=== PATIENT | male | born 1945 | race Caucasian/White ===

== ENCOUNTER 2020-01-19 12:14 | Inpatient (IN) ==
[~2020-01-19 12:14] MED LIST: CEFUROXIME INJ 1,500 MG in SODIUM CHLORIDE 0.9% 100 ML IV ONE; DEXTROSE 50% 25 GM/50 ML VIAL IV PRN; GLUCAGON 1 MG VIAL IM PRN
[2020-01-19] MEDS ORDERED: SODIUM CHLORIDE 0.9% 1,000 ML IV SCH (12:30)
[2020-01-19 13:39] LABS: Basophils % 0.5 % (0.0-0.8); Eosinophils # 0.1 10*3/uL (0.0-0.87); Eosinophils % 1.8 % (0.00-10.9); Hematocrit 48.7 VOL% (42.0-52.0); Hemoglobin 16.2 GM/DL (14.0-18.0); Immature Granulocytes % 0.2 %; Immature Granulocytes Absolute 0.01 #; Lymphocytes # 2.8 10*3/uL (1.4-4.0); Lymphocytes % 41.4 % (21.2-54.2); Mean Corpuscular HGB Conc 33.3 GM/DL (32-36); Mean Corpuscular Volume 92.8 FL (87-102); Mean Platelet Volume 10.1 FL (9.6-12.0); Monocytes % 11.3 % (1.7-12.7); Neutrophils % 44.8 % (38.7-73.9); Platelet Count 237 T/CUMM (130-400); Red Blood Count 5.25 MC/CUMM (3.8-5.5); Red Cell Distribution Width 13.4 % (9.3-17.3); White Blood Count 6.6 T/CUMM (4-12)
[2020-01-19 14:00] LABS: Alanine Aminotransferase 22 U/L (16-61); Albumin 4.3 G/DL (3.4-5.0); Alkaline Phosphatase 78 U/L (45-117); Aspartate Amino Transferase 21 U/L (0-37); Bilirubin,Total < 0.39 MG/DL (0.2-1.0); Blood Urea Nitrogen 16 MG/DL (7-18); Calcium 8.9 MG/DL (8.5-10.1); Glucose 125 MG/DL (74-106); Osmolality,Calculated 276.7 MOS/KG (273-304); Total Protein 7.9 G/DL (6.4-8.3)
[2020-01-19 14:01] LABS: Estimated Glom Filtration Rate 0 ML/MIN
[2020-01-19] MEDS: CHLORHEXIDINE 4% SOLN 118 ML BOTTLE TOP SCH ×2 (15:15→20:30)
[2020-01-19] MEDS: INSULIN REGULAR 100 UNIT/ML SUBCUT SCH ×2 (16:48→20:29)
[2020-01-19] MEDS: CHLORHEXIDINE 0.12% ORAL RINSE 60 ML BOTTLE SWISH/SPIT SCH (20:32)
[2020-01-20] MEDS ORDERED: PAPAVERINE 60 MG/2 ML VIAL ONE ×2 (04:21→09:14)
[2020-01-20] MEDS ORDERED: VANCOMYCIN 500 MG VIAL ONE (04:22)
[2020-01-20] MEDS ORDERED: VANCOMYCIN 1,000 MG VIAL ONE (04:22)
[2020-01-20] MEDS ORDERED: CEFUROXIME INJ 1,500 MG in SYRINGE 1 EACH IV ONE (05:00)
[2020-01-20] MEDS ORDERED: ETOMIDATE 40 MG/20 ML VIAL IV ONE (06:00)
[2020-01-20] MEDS ORDERED: VECURONIUM 10 MG VIAL IV ONE ×3 (06:00)
[2020-01-20] MEDS ORDERED: LIDOCAINE 2% 5 ML VIAL ONE ×2 (06:01→11:11)
[2020-01-20] MEDS ORDERED: MIDAZOLAM 10 MG/2 ML VIAL ONE ×3 (06:02)
[2020-01-20] MEDS ORDERED: SUFentanil 250 MCG/5 ML AMP ONE (06:02)
[2020-01-20] MEDS ORDERED: FAMOTIDINE 20 MG TABLET PO ONE (06:30)
[2020-01-20] MEDS ORDERED: DIAZEPAM 5 MG TABLET PO ONE (06:30)
[2020-01-20] MEDS ORDERED: PHENYLEPHRINE DRIP 40 MG/250 ML PREMIX IV ONE (07:40)
[2020-01-20 07:48] LABS: ABG Base Excess -0.9 MMOL/L (-2.5-2.5); ABG HCO3 23.2 MMOL/L (20-26); ABG Oxygen Saturation 99.2 % (95-100); ABG PH 7.415 (7.35-7.45); ABG PO2 427.9 MM HG (80-95); ABG TCO2 24.3 MMOL/L (23-27); Glucose Heart Surgery 139 MG/DL (74-106); Hemoglobin Heart Surgery 14.4 G/DL (14.0-18.0); PH Patient Temp Arterial 7.415; PO2 Patient Temp Arterial 427.9 MM HG; Patient Temperature 37 CELCIUS; Potassium Heart/CVR 4.2 MMOL/L (3.5-5.1); Sodium Heart/CVR 135 MMOL/L (135-145)
[2020-01-20 08:04] LABS: Bilirubin,Urine Negative (Negative); Blood, Urine Negative (Negative); Glucose,Urine (UA) >=500 mg/dL (Negative); Hyaline Casts,Urine 1 /LPF (0-3); Ketones,Urine 5 mg/dL (Negative); Mucus,Urine Occasional /LPF (Occasional); Nitrite,Urine Negative (Negative); Protein,Urine Negative; RBC,Urine 1 /HPF (0-4); Urine Appearance CLEAR (Clear); Urine Color Yellow (Yellow); Urine Specific Gravity 1.023 (1.001-1.035); Urine Urobilinogen < 2.0 EU/DL (0.2-1.0)
[2020-01-20] MEDS ORDERED: HEPARIN 10,000 UNIT/10 ML VIAL ONE ×2 (08:44→11:12)
[2020-01-20] MEDS ORDERED: CALCIUM CHLORIDE 1,000 MG/10 ML VIAL IV ONE ×2 (09:40→10:58)
[2020-01-20] MEDS ORDERED: AMIODARONE 150 MG/3 ML VIAL ONE (09:41)
[2020-01-20 09:44] LABS: Hematocrit Heart Surgery 30.2 PERCENT (42-52); Hemoglobin Heart Surgery 9.8 G/DL (14.0-18.0); PCO2 Patient Temp Venous 37.3 MM HG; PH Patient Temp Venous 7.423; PO2 Patient Temp Venous 34.7 MM HG; Potassium Heart/CVR 4.4 MMOL/L (3.5-5.1); VBG Base Excess 0.3 MEQ/L (0-4); VBG HCO3 24.4 MEQ/L (24-28); VBG Oxygen Saturation 77.3 %; VBG PCO2 43.2 MMHG (41-51); VBG PH 7.38; VBG PO2 42.8 MMHG (17-40)
[2020-01-20 10:17] LABS: Hematocrit Heart Surgery 30.1 PERCENT (42-52); Hemoglobin Heart Surgery 9.7 G/DL (14.0-18.0); PCO2 Patient Temp Venous 33.3 MM HG; PH Patient Temp Venous 7.462; PO2 Patient Temp Venous 31.2 MM HG; Potassium Heart/CVR 4.8 MMOL/L (3.5-5.1); VBG Base Excess 0.4 MEQ/L (0-4); VBG HCO3 24.4 MEQ/L (24-28); VBG Oxygen Saturation 70.6 %; VBG PCO2 36.7 MMHG (41-51); VBG PH 7.432; VBG PO2 35.9 MMHG (17-40)
[2020-01-20] MEDS ORDERED: THROMBIN TOPICAL (RECOMBINANT) 5,000 UNIT VIAL TOP ONE (10:39)
[2020-01-20 11:06] LABS: ABG Base Excess -1.9 MMOL/L (-2.5-2.5); ABG HCO3 22.8 MMOL/L (20-26); ABG Oxygen Saturation 98.1 % (95-100); ABG PCO2 43.1 MM HG (35-48); ABG PH 7.347 (7.35-7.45); ABG TCO2 21.9 MMOL/L (23-27); Glucose Heart Surgery 221 MG/DL (74-106); Hematocrit Heart Surgery 27.7 PERCENT (42-52); Hemoglobin Heart Surgery 8.9 G/DL (14.0-18.0); PCO2 Patient Temp Arterial 43.1 MMHG; PH Patient Temp Arterial 7.347; Patient Temperature 37 CELCIUS; Potassium Heart/CVR 3.7 MMOL/L (3.5-5.1); Sodium Heart/CVR 138 MMOL/L (135-145)
[2020-01-20] MEDS ORDERED: ALBUMIN 25% 25 GM/100 ML VIAL IV ONE (11:11)
[2020-01-20] MEDS ORDERED: methylPREDNISolone SOD SUC 1,000 MG/8 ML VIAL ONE (11:11)
[2020-01-20] MEDS ORDERED: MAGNESIUM SULFATE 5 GM/10 ML VIAL IV ONE (11:11)
[2020-01-20] MEDS ORDERED: PROTAMINE SULFATE 250 MG/25 ML VIAL IV ONE (11:12)
[2020-01-20] MEDS ORDERED: DEXTROSE 5% KCL 20 MEQ 20 MEQ/1,000 ML BAG IV ONE (11:12)
[2020-01-20] MEDS ORDERED: MANNITOL 100 GM/500 ML BAG IV ONE (11:12)
[2020-01-20] MEDS ORDERED: FUROSEMIDE 20 MG/2 ML VIAL ONE (11:13)
[2020-01-20] MEDS ORDERED: SODIUM BICARBONATE 50 MEQ/50 ML VIAL IV ONE (11:13)
[2020-01-20] MEDS ORDERED: PROTAMINE SULFATE 50 MG/5 ML VIAL IV ONE ×3 (11:13→12:06)
[2020-01-20] MEDS ORDERED: SODIUM CHLORIDE 0.9% 250 ML IV ONE (11:16)
[2020-01-20] MEDS ORDERED: LACTATED RINGERS 2,000 ML IV ONE (11:16)
[2020-01-20] MEDS ORDERED: SODIUM CHLORIDE 0.9% 2,000 ML IV ONE (11:16)
[2020-01-20] MEDS: LACTATED RINGERS 1,000 ML IV PRN ×3 (12:00→15:58)
[2020-01-20] MEDS ORDERED: PHENYLEPHRINE DRIP 40 MG/250 ML PREMIX IV PRN (12:03)
[2020-01-20] MEDS ORDERED: MAGNESIUM SULF RIDER 2 GM in PREMIX 1 EACH IV PRN (12:03)
[2020-01-20] MEDS ORDERED: INSULIN REGULAR 100 UNIT/ML IV ONE (12:03)
[2020-01-20] MEDS ORDERED: CALCIUM CHLORIDE 1,000 MG/10 ML SYRINGE IV PRN (12:03)
[2020-01-20] MEDS ORDERED: MAGNESIUM SULF RIDER 4 GM in PREMIX 1 EACH IV PRN (12:03)
[2020-01-20] MEDS ORDERED: CHLORHEXIDINE 4% SOLN 118 ML BOTTLE TOP PRN (12:03)
[2020-01-20] MEDS ORDERED: ACETAMINOPHEN 650 MG SUPP RECTAL PRN (12:03)
[2020-01-20] MEDS ORDERED: MORPHINE 10 MG/1 ML VIAL IV PRN (12:03)
[2020-01-20] MEDS ORDERED: ALBUMIN 5% 12.5 GM in PREMIX 1 EACH IV PRN (12:03)
[2020-01-20] MEDS ORDERED: NITROPRUSSIDE 100 MG in DEXTROSE 5% 250 ML IV PRN (12:03)
[2020-01-20] MEDS ORDERED: VECURONIUM 10 MG VIAL IV PRN ×2 (12:03)
[2020-01-20] MEDS ORDERED: LACTATED RINGERS 250 ML IV PRN (12:03)
[2020-01-20] MEDS ORDERED: POTASSIUM CHLORIDE RIDER 10 MEQ in PREMIX 1 EACH IV PRN (12:03)
[2020-01-20] MEDS ORDERED: MIDAZOLAM 2 MG/2 ML VIAL IV PRN (12:03)
[2020-01-20] MEDS ORDERED: DEXTROSE 50% 25 GM/50 ML VIAL IV PRN ×2 (12:03)
[2020-01-20] MEDS ORDERED: INSULIN REGULAR DRIP 100 ML IV SCH (12:03)
[2020-01-20] MEDS ORDERED: ONDANSETRON 4 MG/2 ML VIAL IV PRN (12:03)
[2020-01-20] MEDS ORDERED: INSULIN REGULAR 100 UNIT/ML IV PRN (12:03)
[2020-01-20] MEDS ORDERED: SODIUM CHLORIDE 0.45% 1,000 ML IV SCH ×2 (12:03)
[2020-01-20] MEDS ORDERED: MIDAZOLAM 10 MG/2 ML VIAL IV PRN (12:03)
[2020-01-20] MEDS: CHLORHEXIDINE 4% SOLN 118 ML BOTTLE TOP SCH (12:08)
[2020-01-20] MEDS ORDERED: SEVOFLURANE 1 UNIT/15 MINUTE INH ONE (12:08)
[2020-01-20] MEDS ORDERED: SODIUM CHLORIDE 0.9% 1,000 ML IV PRN (12:20)
[2020-01-20] MEDS ORDERED: AMIODARONE INJ 450 MG in DEXTROSE 5% 241 ML IV SCH ×2 (12:30→18:30)
[2020-01-20 12:31] LABS: ABG HCO3 21.9 MMOL/L (20-26); ABG Oxygen Saturation 98.5 % (95-100); ABG TCO2 21.9 MMOL/L (23-27); Glucose Heart Surgery 203 MG/DL (74-106); Hemoglobin Heart Surgery 9.4 G/DL (14.0-18.0); Potassium Heart/CVR 3.8 MMOL/L (3.5-5.1)
[2020-01-20 12:34] LABS: Basophils % 0.3 % (0.0-0.8); Eosinophils # 0.1 10*3/uL (0.0-0.87); Eosinophils % 0.6 % (0.00-10.9); Hematocrit 27.2 VOL% (42.0-52.0); Immature Granulocytes % 0.4 %; Immature Granulocytes Absolute 0.04 #; Lymphocytes # 1.6 10*3/uL (1.4-4.0); Lymphocytes % 16.8 % (21.2-54.2); Mean Corpuscular HGB Conc 33.1 GM/DL (32-36); Mean Corpuscular Volume 94.8 FL (87-102); Mean Platelet Volume 10.1 FL (9.6-12.0); Monocytes % 7.1 % (1.7-12.7); Neutrophils % 74.8 % (38.7-73.9); Platelet Count 139 T/CUMM (130-400); Red Blood Count 2.87 MC/CUMM (3.8-5.5); Red Cell Distribution Width 13.4 % (9.3-17.3); White Blood Count 9.7 T/CUMM (4-12)
[2020-01-20 12:45] LABS: INR 1.3; PT Patient Result 14.2 SECS (9.8-11.9)
[2020-01-20 12:55] LABS: CKMB % 6.4 %
[2020-01-20 12:59] LABS: Albumin 2.8 G/DL (3.4-5.0); Bilirubin,Total 0.9 MG/DL (0.2-1.0); Calcium 7.9 MG/DL (8.5-10.1); Osmolality,Calculated 283.4 MOS/KG (273-304); Total Protein 4.6 G/DL (6.4-8.3); Troponin I 3.03 NG/ML (0.00-0.045)
[2020-01-20] MEDS: POTASSIUM CHLORIDE RIDER 20 MEQ in PREMIX 1 EACH IV PRN ×2 (13:05→16:02)
[2020-01-20] MEDS ORDERED: NITROPRUSSIDE 50 MG/2 ML VIAL ONE (13:05)
[2020-01-20 14:17] LABS: ABG HCO3 21.1 MMOL/L (20-26); ABG Oxygen Saturation 97.6 % (95-100); ABG PCO2 50.8 MM HG (35-48); ABG PH 7.269 (7.35-7.45); ABG TCO2 21.5 MMOL/L (23-27); Glucose Heart Surgery 282 MG/DL (74-106); Hematocrit Heart Surgery 30.9 PERCENT (42-52); Potassium Heart/CVR 4.3 MMOL/L (3.5-5.1)
[2020-01-20 15:44] LABS: ABG Base Excess -1.9 MMOL/L (-2.5-2.5); ABG HCO3 22.8 MMOL/L (20-26); ABG Oxygen Saturation 97.7 % (95-100); ABG PCO2 45.7 MM HG (35-48); ABG PO2 97.3 MM HG (80-95); ABG TCO2 22.3 MMOL/L (23-27); Glucose Heart Surgery 257 MG/DL (74-106); Hematocrit Heart Surgery 28.5 PERCENT (42-52); Hemoglobin Heart Surgery 9.2 G/DL (14.0-18.0); Potassium Heart/CVR 3.9 MMOL/L (3.5-5.1)
[2020-01-20 16:59] LABS: ABG Base Excess -1.2 MMOL/L (-2.5-2.5); ABG HCO3 23.4 MMOL/L (20-26); ABG Oxygen Saturation 98.5 % (95-100); ABG PCO2 40.6 MM HG (35-48); ABG PH 7.377 (7.35-7.45); ABG TCO2 21.9 MMOL/L (23-27); Glucose Heart Surgery 240 MG/DL (74-106); Hematocrit Heart Surgery 29.2 PERCENT (42-52); Hemoglobin Heart Surgery 9.4 G/DL (14.0-18.0); Potassium Heart/CVR 4.2 MMOL/L (3.5-5.1)
[2020-01-20] MEDS: INSULIN REGULAR 100 UNIT/ML SUBCUT SCH ×2 (17:41→17:42)
[2020-01-20] MEDS: CHLORHEXIDINE 0.12% ORAL RINSE 60 ML BOTTLE SWISH/SPIT SCH ×2 (17:41→21:57)
[2020-01-20] MEDS: MORPHINE 4 MG/1 ML VIAL IV PRN ×2 (17:52→19:48)
[2020-01-20] MEDS: CEFUROXIME INJ 1,500 MG in SODIUM CHLORIDE 0.9% 100 ML IV SCH (17:54)
[2020-01-20 18:31] LABS: ABG Base Excess -0.8 MMOL/L (-2.5-2.5); ABG HCO3 23.7 MMOL/L (20-26); ABG Oxygen Saturation 97.6 % (95-100); ABG PCO2 38.5 MM HG (35-48); ABG PH 7.398 (7.35-7.45); ABG PO2 88.8 MM HG (80-95); ABG TCO2 21.5 MMOL/L (23-27); Glucose Heart Surgery 216 MG/DL (74-106); Hematocrit Heart Surgery 32.3 PERCENT (42-52); Hemoglobin Heart Surgery 10.4 G/DL (14.0-18.0); Potassium Heart/CVR 4.3 MMOL/L (3.5-5.1)
[2020-01-20] MEDS ORDERED: HALOPERIDOL 5 MG/ML AMP IV ONE (18:31)
[2020-01-20] MEDS: KETOROLAC 30 MG/1 ML VIAL IV SCH (20:06)
[2020-01-20 20:55] LABS: ABG Base Excess -0.5 MMOL/L (-2.5-2.5); ABG Oxygen Saturation 96.8 % (95-100); ABG PCO2 43.6 MM HG (35-48); ABG PH 7.366 (7.35-7.45); ABG PO2 85.2 MM HG (80-95); ABG TCO2 22.6 MMOL/L (23-27); Glucose Heart Surgery 189 MG/DL (74-106); Hematocrit Heart Surgery 32.5 PERCENT (42-52); Hemoglobin Heart Surgery 10.5 G/DL (14.0-18.0); Potassium Heart/CVR 4.3 MMOL/L (3.5-5.1)
[2020-01-20 21:24] LABS: CKMB % 4.4 %
[2020-01-20 21:26] LABS: Troponin I 2.53 NG/ML (0.00-0.045)
[2020-01-20 21:50] LABS: ABG Base Excess 0.3 MMOL/L (-2.5-2.5); ABG HCO3 24.7 MMOL/L (20-26); ABG Oxygen Saturation 95.6 % (95-100); ABG PCO2 43.8 MM HG (35-48); ABG PH 7.376 (7.35-7.45); ABG PO2 80.4 MM HG (80-95); ABG TCO2 23.3 MMOL/L (23-27); Glucose Heart Surgery 178 MG/DL (74-106); Hematocrit Heart Surgery 32.3 PERCENT (42-52); Hemoglobin Heart Surgery 10.5 G/DL (14.0-18.0); Potassium Heart/CVR 4.3 MMOL/L (3.5-5.1)
[2020-01-20 22:24] LABS: ABG Base Excess 0.4 MMOL/L (-2.5-2.5); ABG HCO3 24.8 MMOL/L (20-26); ABG Oxygen Saturation 96.2 % (95-100); ABG PH 7.383 (7.35-7.45); ABG TCO2 23.3 MMOL/L (23-27); Glucose Heart Surgery 173 MG/DL (74-106); Hematocrit Heart Surgery 31.9 PERCENT (42-52); Hemoglobin Heart Surgery 10.3 G/DL (14.0-18.0); Potassium Heart/CVR 4.3 MMOL/L (3.5-5.1)
[2020-01-20 23:42] LABS: ABG Base Excess 0.7 MMOL/L (-2.5-2.5); ABG HCO3 25.1 MMOL/L (20-26); ABG PCO2 44.2 MM HG (35-48); ABG PO2 86.7 MM HG (80-95); ABG TCO2 23.7 MMOL/L (23-27); Glucose Heart Surgery 161 MG/DL (74-106); Hematocrit Heart Surgery 32.1 PERCENT (42-52); Hemoglobin Heart Surgery 10.4 G/DL (14.0-18.0); Potassium Heart/CVR 4.2 MMOL/L (3.5-5.1)
[2020-01-21 00:25] LABS: ABG Base Excess 0.8 MMOL/L (-2.5-2.5); ABG HCO3 25.1 MMOL/L (20-26); ABG PCO2 43.7 MM HG (35-48); ABG PH 7.384 (7.35-7.45); ABG PO2 86.8 MM HG (80-95); ABG TCO2 23.7 MMOL/L (23-27); Glucose Heart Surgery 152 MG/DL (74-106); Hematocrit Heart Surgery 31.9 PERCENT (42-52); Hemoglobin Heart Surgery 10.3 G/DL (14.0-18.0); Potassium Heart/CVR 4.1 MMOL/L (3.5-5.1)
[2020-01-21 01:20] LABS: ABG Base Excess 0.7 MMOL/L (-2.5-2.5); ABG HCO3 25.1 MMOL/L (20-26); ABG Oxygen Saturation 97.9 % (95-100); ABG PCO2 45.8 MM HG (35-48); ABG PH 7.368 (7.35-7.45); ABG PO2 96.9 MM HG (80-95); Glucose Heart Surgery 149 MG/DL (74-106); Hematocrit Heart Surgery 31.9 PERCENT (42-52); Hemoglobin Heart Surgery 10.3 G/DL (14.0-18.0); Potassium Heart/CVR 4.1 MMOL/L (3.5-5.1)
[2020-01-21] MEDS ORDERED: FUROSEMIDE 40 MG/4 ML VIAL IV ONE (01:38)
[2020-01-21] MEDS: KETOROLAC 30 MG/1 ML VIAL IV SCH ×4 (02:20→20:13)
[2020-01-21] MEDS: MORPHINE 4 MG/1 ML VIAL IV PRN (02:43)
[2020-01-21 04:50] LABS: ABG Base Excess 2.2 MMOL/L (-2.5-2.5); ABG HCO3 26.4 MMOL/L (20-26); ABG Oxygen Saturation 98.1 % (95-100); ABG PCO2 47.1 MM HG (35-48); ABG PH 7.379 (7.35-7.45); ABG PO2 98.9 MM HG (80-95); ABG TCO2 25.4 MMOL/L (23-27); Basophils % 0.1 % (0.0-0.8); Glucose Heart Surgery 148 MG/DL (74-106); Hematocrit Heart Surgery 30.8 PERCENT (42-52); Hemoglobin 9.9 GM/DL (14.0-18.0); Immature Granulocytes % 0.4 %; Immature Granulocytes Absolute 0.05 #; Lymphocytes # 1.3 10*3/uL (1.4-4.0); Lymphocytes % 9.6 % (21.2-54.2); Mean Corpuscular HGB Conc 35.4 GM/DL (32-36); Mean Corpuscular Volume 89.5 FL (87-102); Mean Platelet Volume 10.6 FL (9.6-12.0); Neutrophils % 77.9 % (38.7-73.9); Platelet Count 185 T/CUMM (130-400); Potassium Heart/CVR 3.9 MMOL/L (3.5-5.1); Red Blood Count 3.13 MC/CUMM (3.8-5.5); Red Cell Distribution Width 14.4 % (9.3-17.3); White Blood Count 13.8 T/CUMM (4-12)
[2020-01-21 05:12] LABS: Albumin 3.2 G/DL (3.4-5.0); Bilirubin,Direct 0.18 MG/DL (0.0-0.20); Bilirubin,Total 0.7 MG/DL (0.2-1.0); Osmolality,Calculated 281.4 MOS/KG (273-304); Total Protein 5.9 G/DL (6.4-8.3)
[2020-01-21 05:14] LABS: CKMB % 5.3 %
[2020-01-21 05:16] LABS: Troponin I 4.36 NG/ML (0.00-0.045)
[2020-01-21] MEDS: CEFUROXIME INJ 1,500 MG in SODIUM CHLORIDE 0.9% 100 ML IV SCH ×2 (05:56→17:10)
[2020-01-21] MEDS: POTASSIUM CHLORIDE RIDER 20 MEQ in PREMIX 1 EACH IV PRN (05:56)
[2020-01-21] MEDS ORDERED: LIDOCAINE 2% 20 ML VIAL ONE (08:13)
[2020-01-21] MEDS ORDERED: LIDOCAINE 2% 20 ML VIAL MISC INJ ONE (09:00)
[2020-01-21] MEDS ORDERED: CHOLECALCIFEROL 400 UNIT TABLET PO SCH (09:00)
[2020-01-21] MEDS ORDERED: ZINC GLUCONATE 50 MG TABLET PO SCH (09:00)
[2020-01-21] MEDS ORDERED: ALUMINUM/MAGNES/SIMETH MAX STR 30 ML UDCUP PO PRN (09:10)
[2020-01-21] MEDS ORDERED: MAGNESIUM SULF RIDER 2 GM in PREMIX 1 EACH IV PRN (09:10)
[2020-01-21] MEDS ORDERED: DEXTROSE 50% 25 GM/50 ML VIAL IV PRN ×2 (09:10→09:45)
[2020-01-21] MEDS ORDERED: SODIUM CHLOR 0.45% KCL 20 MEQ 20 MEQ/1,000 ML BAG IV SCH (09:10)
[2020-01-21] MEDS ORDERED: MAGNESIUM HYDROXIDE SUSP 30 ML UDCUP PO PRN (09:10)
[2020-01-21] MEDS ORDERED: POTASSIUM CHLORIDE 20 MEQ TABLET PO PRN (09:10)
[2020-01-21] MEDS ORDERED: GLUCAGON 1 MG VIAL IM PRN ×2 (09:10→09:45)
[2020-01-21] MEDS ORDERED: oxyCODONE/ACETAMINOPHEN 5-325 MG TABLET PO PRN (09:10)
[2020-01-21] MEDS ORDERED: ACETAMINOPHEN 325 MG TABLET PO PRN (09:10)
[2020-01-21] MEDS ORDERED: ZALEPLON 5 MG CAPSULE PO PRN (09:10)
[2020-01-21] MEDS ORDERED: MAGNESIUM SULF RIDER 4 GM in PREMIX 1 EACH IV PRN (09:10)
[2020-01-21] MEDS: traMADol 50 MG TABLET PO SCH ×2 (09:37→22:54)
[2020-01-21] MEDS: GABAPENTIN 300 MG CAPSULE PO SCH ×3 (09:37→22:52)
[2020-01-21] MEDS: MAGNESIUM CHLORIDE 64 MG TABLET PO SCH (09:38)
[2020-01-21] MEDS: DULoxetine 30 MG CAPSULE PO SCH (09:38)
[2020-01-21] MEDS: MONTELUKAST 10 MG TABLET PO SCH (09:39)
[2020-01-21] MEDS: ASPIRIN EC 325 MG TABLET PO SCH (09:39)
[2020-01-21] MEDS: FERROUS SULFATE 325 MG TABLET PO SCH (09:40)
[2020-01-21] MEDS: AMIODARONE 200 MG TABLET PO SCH ×2 (09:40→22:55)
[2020-01-21] MEDS: DOCUSATE SODIUM 100 MG CAPSULE PO SCH ×2 (09:40→22:56)
[2020-01-21] MEDS: LIDOCAINE 5% PATCH TRANSDERM SCH ×2 (09:41→15:01)
[2020-01-21] MEDS: PANTOPRAZOLE 40 MG TABLET PO SCH (09:42)
[2020-01-21] MEDS: METOPROLOL TARTRATE 25 MG TABLET PO SCH ×2 (09:45→22:52)
[2020-01-21] MEDS: CHLORHEXIDINE 0.12% ORAL RINSE 60 ML BOTTLE SWISH/SPIT SCH ×3 (09:55→23:00)
[2020-01-21 12:38] LABS: CKMB % 4.9 %
[2020-01-21 12:42] LABS: Troponin I 6.02 NG/ML (0.00-0.045)
[2020-01-21] MEDS: rOPINIRole 1 MG TABLET PO SCH (17:10)
[2020-01-21] MEDS: rOPINIRole 4 MG TABLET PO SCH (20:18)
[2020-01-21] MEDS: GLIMEPIRIDE 4 MG TABLET PO SCH (22:52)
[2020-01-21] MEDS: metFORMIN 500 MG TABLET PO SCH (22:53)
[2020-01-21] MEDS: ROSUVASTATIN 20 MG TABLET PO SCH (22:55)
[2020-01-22] MEDS: KETOROLAC 30 MG/1 ML VIAL IV SCH ×4 (01:40→20:48)
[2020-01-22 05:51] LABS: Basophils % 0.2 % (0.0-0.8); Hematocrit 28.5 VOL% (42.0-52.0); Hemoglobin 9.6 GM/DL (14.0-18.0); Immature Granulocytes % 0.5 %; Immature Granulocytes Absolute 0.06 #; Lymphocytes % 15.6 % (21.2-54.2); Mean Corpuscular HGB Conc 33.7 GM/DL (32-36); Mean Corpuscular Volume 91.1 FL (87-102); Mean Platelet Volume 11.5 FL (9.6-12.0); Monocytes % 9.8 % (1.7-12.7); Neutrophils % 73.9 % (38.7-73.9); Platelet Count 171 T/CUMM (130-400); Red Blood Count 3.13 MC/CUMM (3.8-5.5); Red Cell Distribution Width 14.8 % (9.3-17.3); White Blood Count 12.8 T/CUMM (4-12)
[2020-01-22] MEDS ORDERED: FUROSEMIDE 40 MG/4 ML VIAL IV ONE (06:00)
[2020-01-22 06:32] LABS: Albumin 3.1 G/DL (3.4-5.0); Bilirubin,Direct 0.14 MG/DL (0.0-0.20); Bilirubin,Indirect 0.8 MG/DL (0.0-1.0); Bilirubin,Total 0.9 MG/DL (0.2-1.0); CKMB % 2.6 %; Total Protein 5.9 G/DL (6.4-8.3)
[2020-01-22 06:33] LABS: Bilirubin,Direct 0.14 MG/DL (0.0-0.20); Bilirubin,Total 0.6 MG/DL (0.2-1.0); Calcium 8.2 MG/DL (8.5-10.1); Osmolality,Calculated 283.4 MOS/KG (273-304); Troponin I 6.93 NG/ML (0.00-0.045)
[2020-01-22] MEDS: GABAPENTIN 300 MG CAPSULE PO SCH ×3 (08:20→20:52)
[2020-01-22] MEDS: ASPIRIN EC 325 MG TABLET PO SCH (08:20)
[2020-01-22] MEDS: DULoxetine 30 MG CAPSULE PO SCH (08:21)
[2020-01-22] MEDS: traMADol 50 MG TABLET PO SCH ×2 (08:29→20:52)
[2020-01-22] MEDS: GLIMEPIRIDE 4 MG TABLET PO SCH ×2 (08:29→16:32)
[2020-01-22] MEDS: DOCUSATE SODIUM 100 MG CAPSULE PO SCH ×2 (08:29→20:54)
[2020-01-22] MEDS: MAGNESIUM CHLORIDE 64 MG TABLET PO SCH (08:29)
[2020-01-22] MEDS: metFORMIN 500 MG TABLET PO SCH ×2 (08:29→16:32)
[2020-01-22] MEDS: MONTELUKAST 10 MG TABLET PO SCH (08:29)
[2020-01-22] MEDS: AMIODARONE 200 MG TABLET PO SCH ×2 (08:30→20:54)
[2020-01-22] MEDS: FERROUS SULFATE 325 MG TABLET PO SCH (08:30)
[2020-01-22] MEDS: PANTOPRAZOLE 40 MG TABLET PO SCH (08:30)
[2020-01-22] MEDS: METOPROLOL TARTRATE 25 MG TABLET PO SCH ×2 (08:30→20:51)
[2020-01-22] MEDS: CHLORHEXIDINE 0.12% ORAL RINSE 60 ML BOTTLE SWISH/SPIT SCH ×2 (08:31→20:58)
[2020-01-22] MEDS: ASCORBIC ACID 500 MG TABLET PO SCH ×2 (08:36→20:53)
[2020-01-22] MEDS: rOPINIRole 1 MG TABLET PO SCH (16:33)
[2020-01-22] MEDS: rOPINIRole 4 MG TABLET PO SCH (20:51)
[2020-01-22] MEDS: ROSUVASTATIN 20 MG TABLET PO SCH (20:53)
[2020-01-23] MEDS: KETOROLAC 30 MG/1 ML VIAL IV SCH ×4 (03:37→19:30)
[2020-01-23 05:22] LABS: Bilirubin,Direct 0.19 MG/DL (0.0-0.20); Bilirubin,Total 0.6 MG/DL (0.2-1.0); Calcium 8.3 MG/DL (8.5-10.1); Osmolality,Calculated 282.7 MOS/KG (273-304)
[2020-01-23 05:26] LABS: Alanine Aminotransferase 22 U/L (16-61); Alkaline Phosphatase 54 U/L (45-117); Aspartate Amino Transferase 35 U/L (0-37); Bilirubin,Indirect 1.2 MG/DL (0.0-1.0); Total Protein 5.5 G/DL (6.4-8.3)
[2020-01-23 05:28] LABS: Basophils % 0.1 % (0.0-0.8); Eosinophils % 0.4 % (0.00-10.9); Hematocrit 27.1 VOL% (42.0-52.0); Hemoglobin 9.1 GM/DL (14.0-18.0); Immature Granulocytes % 0.4 %; Immature Granulocytes Absolute 0.04 #; Lymphocytes # 1.9 10*3/uL (1.4-4.0); Lymphocytes % 21.2 % (21.2-54.2); Mean Corpuscular HGB Conc 33.6 GM/DL (32-36); Mean Corpuscular Volume 92.2 FL (87-102); Mean Platelet Volume 10.6 FL (9.6-12.0); Monocytes % 12.8 % (1.7-12.7); Neutrophils % 65.1 % (38.7-73.9); Platelet Count 177 T/CUMM (130-400); Red Blood Count 2.94 MC/CUMM (3.8-5.5); Red Cell Distribution Width 14.3 % (9.3-17.3)
[2020-01-23] MEDS: DULoxetine 30 MG CAPSULE PO SCH (08:28)
[2020-01-23] MEDS: traMADol 50 MG TABLET PO SCH ×2 (08:28→20:57)
[2020-01-23] MEDS: ASPIRIN EC 325 MG TABLET PO SCH (08:28)
[2020-01-23] MEDS: GLIMEPIRIDE 4 MG TABLET PO SCH ×2 (08:28→17:23)
[2020-01-23] MEDS: DOCUSATE SODIUM 100 MG CAPSULE PO SCH ×2 (08:28→20:59)
[2020-01-23] MEDS: FERROUS SULFATE 325 MG TABLET PO SCH (08:28)
[2020-01-23] MEDS: MAGNESIUM CHLORIDE 64 MG TABLET PO SCH (08:28)
[2020-01-23] MEDS: GABAPENTIN 300 MG CAPSULE PO SCH ×3 (08:28→20:56)
[2020-01-23] MEDS: AMIODARONE 200 MG TABLET PO SCH ×2 (08:29→20:58)
[2020-01-23] MEDS: PANTOPRAZOLE 40 MG TABLET PO SCH (08:29)
[2020-01-23] MEDS: MONTELUKAST 10 MG TABLET PO SCH (08:29)
[2020-01-23] MEDS: METOPROLOL TARTRATE 25 MG TABLET PO SCH ×2 (08:29→20:57)
[2020-01-23] MEDS: metFORMIN 500 MG TABLET PO SCH ×2 (08:29→17:22)
[2020-01-23] MEDS: CHLORHEXIDINE 0.12% ORAL RINSE 60 ML BOTTLE SWISH/SPIT SCH ×2 (08:30→20:58)
[2020-01-23] MEDS: POLYETHYLENE GLYCOL POWDER 17 GM PACK PO SCH (08:31)
[2020-01-23] MEDS: LIDOCAINE 5% PATCH TRANSDERM SCH (08:31)
[2020-01-23] MEDS: ASCORBIC ACID 500 MG TABLET PO SCH ×2 (10:00→20:58)
[2020-01-23] MEDS: rOPINIRole 1 MG TABLET PO SCH (17:22)
[2020-01-23] MEDS: ROSUVASTATIN 20 MG TABLET PO SCH (20:57)
[2020-01-23] MEDS: rOPINIRole 4 MG TABLET PO SCH (20:57)
[2020-01-24] MEDS: KETOROLAC 30 MG/1 ML VIAL IV SCH ×4 (02:53→20:24)
[2020-01-24 06:00] LABS: Basophils % 0.1 % (0.0-0.8); Eosinophils # 0.1 10*3/uL (0.0-0.87); Eosinophils % 1.6 % (0.00-10.9); Hematocrit 26.4 VOL% (42.0-52.0); Hemoglobin 8.9 GM/DL (14.0-18.0); Immature Granulocytes % 0.6 %; Immature Granulocytes Absolute 0.04 #; Lymphocytes # 1.5 10*3/uL (1.4-4.0); Lymphocytes % 22.3 % (21.2-54.2); Mean Corpuscular HGB Conc 33.7 GM/DL (32-36); Mean Platelet Volume 10.1 FL (9.6-12.0); Monocytes % 12.7 % (1.7-12.7); Neutrophils % 62.7 % (38.7-73.9); Platelet Count 204 T/CUMM (130-400); Red Blood Count 2.87 MC/CUMM (3.8-5.5); Red Cell Distribution Width 13.6 % (9.3-17.3); White Blood Count 6.7 T/CUMM (4-12)
[2020-01-24 06:08] LABS: Calcium 8.2 MG/DL (8.5-10.1); Osmolality,Calculated 281.7 MOS/KG (273-304)
[2020-01-24] MEDS: DULoxetine 30 MG CAPSULE PO SCH (08:24)
[2020-01-24] MEDS: GABAPENTIN 300 MG CAPSULE PO SCH ×3 (08:24→21:41)
[2020-01-24] MEDS: GLIMEPIRIDE 4 MG TABLET PO SCH ×2 (08:24→16:42)
[2020-01-24] MEDS: ASPIRIN EC 325 MG TABLET PO SCH (08:24)
[2020-01-24] MEDS: MAGNESIUM CHLORIDE 64 MG TABLET PO SCH (08:24)
[2020-01-24] MEDS: MONTELUKAST 10 MG TABLET PO SCH (08:24)
[2020-01-24] MEDS: METOPROLOL TARTRATE 25 MG TABLET PO SCH ×2 (08:25→21:45)
[2020-01-24] MEDS: DOCUSATE SODIUM 100 MG CAPSULE PO SCH ×2 (08:25→21:57)
[2020-01-24] MEDS: traMADol 50 MG TABLET PO SCH ×2 (08:25→21:42)
[2020-01-24] MEDS: ASCORBIC ACID 500 MG TABLET PO SCH ×2 (08:25→21:41)
[2020-01-24] MEDS: AMIODARONE 200 MG TABLET PO SCH ×2 (08:26→21:41)
[2020-01-24] MEDS: PANTOPRAZOLE 40 MG TABLET PO SCH (08:26)
[2020-01-24] MEDS: metFORMIN 500 MG TABLET PO SCH ×2 (08:26→16:43)
[2020-01-24] MEDS: FERROUS SULFATE 325 MG TABLET PO SCH (08:26)
[2020-01-24] MEDS: POLYETHYLENE GLYCOL POWDER 17 GM PACK PO SCH (08:27)
[2020-01-24] MEDS: CHLORHEXIDINE 0.12% ORAL RINSE 60 ML BOTTLE SWISH/SPIT SCH ×2 (08:27→21:45)
[2020-01-24] MEDS: ONDANSETRON 4 MG/2 ML VIAL IV PRN (14:23)
[2020-01-24] MEDS: rOPINIRole 1 MG TABLET PO SCH (16:43)
[2020-01-24] MEDS: ROSUVASTATIN 20 MG TABLET PO SCH (21:41)
[2020-01-24] MEDS: rOPINIRole 4 MG TABLET PO SCH (21:41)
[2020-01-25] MEDS: KETOROLAC 30 MG/1 ML VIAL IV SCH (02:56)
[2020-01-25 06:16] LABS: Basophils % 0.5 % (0.0-0.8); Eosinophils # 0.2 10*3/uL (0.0-0.87); Eosinophils % 3.4 % (0.00-10.9); Hematocrit 27.8 VOL% (42.0-52.0); Hemoglobin 9.2 GM/DL (14.0-18.0); Immature Granulocytes Absolute 0.06 #; Lymphocytes # 1.4 10*3/uL (1.4-4.0); Lymphocytes % 24.5 % (21.2-54.2); Mean Corpuscular HGB Conc 33.1 GM/DL (32-36); Mean Corpuscular Volume 94.6 FL (87-102); Mean Platelet Volume 10.6 FL (9.6-12.0); Monocytes % 14.3 % (1.7-12.7); Neutrophils % 56.3 % (38.7-73.9); Platelet Count 216 T/CUMM (130-400); Red Blood Count 2.94 MC/CUMM (3.8-5.5); Red Cell Distribution Width 13.6 % (9.3-17.3); White Blood Count 5.9 T/CUMM (4-12)
[2020-01-25 06:37] LABS: Alanine Aminotransferase 23 U/L (16-61); Albumin 2.5 G/DL (3.4-5.0); Alkaline Phosphatase 58 U/L (45-117); Aspartate Amino Transferase 22 U/L (0-37); Bilirubin,Indirect 0.3 MG/DL (0.0-1.0); Blood Urea Nitrogen 25 MG/DL (7-18); Calcium 8.4 MG/DL (8.5-10.1); Estimated Glom Filtration Rate 109 ML/MIN; Glucose 113 MG/DL (74-106); Osmolality,Calculated 281.5 MOS/KG (273-304); Total Protein 5.8 G/DL (6.4-8.3)
[2020-01-25] MEDS ORDERED: carvediloL 3.125 MG TABLET PO SCH (09:00)
[2020-01-25] MEDS: FERROUS SULFATE 325 MG TABLET PO SCH (09:28)
[2020-01-25] MEDS: metFORMIN 500 MG TABLET PO SCH (09:28)
[2020-01-25] MEDS: DULoxetine 30 MG CAPSULE PO SCH (09:29)
[2020-01-25] MEDS: ASCORBIC ACID 500 MG TABLET PO SCH (09:29)
[2020-01-25] MEDS: MAGNESIUM CHLORIDE 64 MG TABLET PO SCH (09:29)
[2020-01-25] MEDS: ASPIRIN EC 325 MG TABLET PO SCH (09:29)
[2020-01-25] MEDS: DOCUSATE SODIUM 100 MG CAPSULE PO SCH (09:29)
[2020-01-25] MEDS: GLIMEPIRIDE 4 MG TABLET PO SCH (09:29)
[2020-01-25] MEDS: CHLORHEXIDINE 0.12% ORAL RINSE 60 ML BOTTLE SWISH/SPIT SCH (09:30)
[2020-01-25] MEDS: PANTOPRAZOLE 40 MG TABLET PO SCH (09:30)
[2020-01-25] MEDS: MONTELUKAST 10 MG TABLET PO SCH (09:30)
[2020-01-25] MEDS: AMIODARONE 200 MG TABLET PO SCH (09:30)
[2020-01-25] MEDS: LIDOCAINE 5% PATCH TRANSDERM SCH (09:31)
[2020-01-25 12:27] VITALS: BP 108/58
[2020-01-25] MEDS: ONDANSETRON 4 MG/2 ML VIAL IV PRN (13:11)
== END 2020-01-25 14:24 | disposition home health service (06) | DRG 236 ==
LOC: N.TELEN 12:14 → N.CVR 01-20 11:37 → N.TELES 01-21 10:19